=== PATIENT | female | born 1980 | race Caucasian/White ===

== ENCOUNTER 2019-07-12 15:57 | Observation (INO) ==
[2019-07-12] MEDS ORDERED: Clindamycin 600 MG/50 ML 600 MG/50 ML IV.SOLN IVPB STA (16:01)
[2019-07-12] MEDS ORDERED: 0.9 % Sodium Chloride 1,000 ML IVC ONE (16:01)
[2019-07-12 16:19] LABS: Basophils % 0.3 %; Eosinophils # 0.1 K/mcL (0.0-0.6); Hematocrit 45.2 % (35.3-44.9); Hemoglobin 14.7 g/dL (11.5-15.4); Immature Granulocytes % 0.2 % (0-4); Lymphocytes # 1.7 K/mcL (0.6-4.6); Lymphocytes % 18.9 %; Mean Corpuscular HGB Conc 32.5 g/dL (31.6-35.5); Mean Corpuscular Hemoglobin 27.4 pg (28.0-33.3); Mean Corpuscular Volume 84.2 fL (83.0-100.0); Monocytes # 0.7 K/mcL (0.0-1.3); Monocytes % 7.9 %; Neutrophils # 6.3 K/mcL (1.6-8.9); Platelet Count 208 K/mcL (140-400); Red Blood Count 5.37 M/mcL (3.82-4.97); Red Cell Distribution Width 12.8 % (11.5-14.5); Segmented Neutrophils % 71.7 %; White Blood Count 8.8 K/mcL (4.3-11.1)
[2019-07-12 16:35] LABS: Alanine Aminotransferase 12 Units/L (7-52); Albumin 2.8 g/dL (3.5-5.7); Albumin/Globulin Ratio 0.8 (1.1-2.2); Alkaline Phosphatase 76 Units/L (34-104); Aspartate Amino Transferase 13 Units/L (13-39); BUN/Creatinine Ratio 14 (6-26); Bilirubin,Direct 0.2 mg/dL (0.0-0.2); Bilirubin,Indirect 0.8 mg/dL (0.0-1.0); Blood Urea Nitrogen 16 mg/dL (6-20); Calcium 8.3 mg/dL (8.6-10.3); Carbon Dioxide 29 mEq/L (23-29); Chloride 103 mEq/L (98-107); Globulin 3.4 g/dL (2.4-3.5); Glucose 242 mg/dL (70-105); Osmolality,Calculated 303 (280-300); Potassium 3.2 mEq/L (3.5-5.1); Sodium 142 mEq/L (136-145); Total Protein 6.2 g/dL (6.4-8.9); eGFR For African Americans > 60 (> 60); eGFR For Non-African Americans 53 (> 60)
[2019-07-12] MEDS: 0.9 % Sodium Chloride 1,000 ML IVC SCH (17:30)
[2019-07-12] MEDS ORDERED: Mag Hydrox/Al Hydrox/Simeth 30 ML UDC PO PRN (17:59)
[2019-07-12] MEDS ORDERED: Naloxone 0.4 MG/ML INJ IVP PRN (17:59)
[2019-07-12] MEDS ORDERED: Ondansetron ODT 4 MG TAB.RAPDIS SL PRN (17:59)
[2019-07-12] MEDS ORDERED: D5% in Water 1,000 ML IVC PRN (18:02)
[2019-07-12] MEDS ORDERED: Dextrose Gel 15 GM/37.5 ML TUBE PO PRN ×2 (18:02)
[2019-07-12] MEDS ORDERED: *HR* Dextrose 50 % in Water (Vial) 50 ML VIAL IVP PRN (18:02)
[2019-07-12] MEDS: Insulin LISPRO 300 UNITS/3 ML VIAL SQ SCH ×2 (20:17→20:27)
[2019-07-12] MEDS: 0.9 % Sodium Chloride 1,000 ML IV SCH (20:26)
[2019-07-12 21:45] LABS: Estimated Average Glucose 292 mg/dl
[2019-07-12] MEDS: *HR* Metoprolol 5 MG/5 ML VIAL IVP PRN (22:48)
[2019-07-12] MEDS: Piperacillin/Tazobactam 3.375 GM in 0.9 % Sodium Chloride Mini Bag 100 ML IVPB SCH (23:04)
[2019-07-13] MEDS: 0.9 % Sodium Chloride 1,000 ML IVC SCH (03:22)
[2019-07-13] MEDS: 0.9 % Sodium Chloride 1,000 ML IV SCH (03:23)
[2019-07-13 06:36] LABS: Hematocrit 38.2 % (35.3-44.9); Hemoglobin 12.6 g/dL (11.5-15.4); Mean Corpuscular Hemoglobin 27.6 pg (28.0-33.3); Mean Corpuscular Volume 83.8 fL (83.0-100.0); Mean Platelet Volume 13.3 fL (9.4-12.4); Platelet Count 201 K/mcL (140-400); Red Blood Count 4.56 M/mcL (3.82-4.97); Red Cell Distribution Width 12.8 % (11.5-14.5); White Blood Count 8.8 K/mcL (4.3-11.1)
[2019-07-13 06:40] LABS: Bilirubin,Urine Negative (Negative); Blood,Urine Moderate (Negative); Clarity,Urine Cloudy (Clear); Color,Urine Yellow (Yellow); Glucose,Urine (UA) 500 mg/dL (Normal); Ketones,Urine Negative (Negative); Leukocyte Esterase,Urine Negative (Negative); Nitrite,Urine Negative (Negative); PH,Urine 5.5 pH Units (5.0-8.0); Protein,Urine >=300 mg/dL (Neg-Trace); Urobilinogen,Urine Normal (Normal)
[2019-07-13 06:45] LABS: BUN/Creatinine Ratio 15 (6-26); Blood Urea Nitrogen 15 mg/dL (6-20); Calcium 7.5 mg/dL (8.6-10.3); Carbon Dioxide 25 mEq/L (23-29); Chloride 108 mEq/L (98-107); Glucose 225 mg/dL (70-105); Osmolality,Calculated 302 (280-300); Potassium 3.2 mEq/L (3.5-5.1); Sodium 142 mEq/L (136-145); eGFR For African Americans > 60 (> 60); eGFR For Non-African Americans > 60 (> 60)
[2019-07-13 07:38] LABS: Amorphous Sediment,Urine Few per hpf (Few); Bacteria,Urine Many per hpf (None-Few); Hyaline Casts,Urine Few per lpf (None-Few); Squamous Epithelial Cell,Urine Moderate per lpf (None-Few); WBC,Urine TNTC per hpf (0-3)
[2019-07-13 07:39] LABS: Granular Casts,Urine Moderate per lpf (None Seen)
[2019-07-13 07:40] LABS: Mucus,Urine Moderate per lpf (Few)
[2019-07-13] MEDS: Insulin LISPRO 300 UNITS/3 ML VIAL SQ SCH ×4 (07:58→20:24)
[2019-07-13] MEDS: Piperacillin/Tazobactam 3.375 GM in 0.9 % Sodium Chloride Mini Bag 100 ML IVPB SCH ×3 (08:00→23:06)
[2019-07-13] MEDS: *HR* Enoxaparin 40 MG/0.4 ML SYRINGE SQ SCH (08:06)
[2019-07-13] MEDS: Losartan/HCTZ 50-12.5 TABLET PO SCH (09:20)
[2019-07-13] MEDS: *HR* Metoprolol 5 MG/5 ML VIAL IVP PRN (20:00)
[2019-07-13] MEDS ORDERED: Insulin DETEMIR 100 UNIT/ML X5UNITS SQ SCH (21:00)
[2019-07-14] MEDS: *HR* Enoxaparin 40 MG/0.4 ML SYRINGE SQ SCH (05:04)
[2019-07-14 06:37] LABS: Hematocrit 36.9 % (35.3-44.9); Hemoglobin 11.6 g/dL (11.5-15.4); Mean Corpuscular HGB Conc 31.4 g/dL (31.6-35.5); Mean Platelet Volume 13.1 fL (9.4-12.4); Platelet Count 190 K/mcL (140-400); Red Blood Count 4.29 M/mcL (3.82-4.97); Red Cell Distribution Width 12.9 % (11.5-14.5); White Blood Count 8.3 K/mcL (4.3-11.1)
[2019-07-14 06:54] LABS: Calcium 7.3 mg/dL (8.6-10.3); Potassium 3.5 mEq/L (3.5-5.1)
[2019-07-14] MEDS: Losartan/HCTZ 50-12.5 TABLET PO SCH (07:44)
[2019-07-14] MEDS: Insulin LISPRO 300 UNITS/3 ML VIAL SQ SCH ×2 (07:44→12:02)
[2019-07-14] MEDS: Piperacillin/Tazobactam 3.375 GM in 0.9 % Sodium Chloride Mini Bag 100 ML IVPB SCH (07:45)
[2019-07-14] MEDS ORDERED: Aminoglycoside Consult 1 EACH MC ONE (13:24)
[2019-07-14 13:25] VITALS: BP 153/88
== END 2019-07-14 13:25 | disposition critical access hospital (66) ==
LOC: EMEROOPIK 15:57 → INPPIK 15:57
PROVIDERS: ADMIT Family Medicine; ATTEND Family Medicine